=== PATIENT | male | born 1960 | race Caucasian/White ===

== ENCOUNTER 2021-02-06 15:54 | Emergency (ER) | payer SELFPAY ==
[~2021-02-06] VITALS: Ht 175.3 cm; Wt 94.8 kg
--- NOTE | 2021-02-06 16:15 | NUR ---
THE PATIENT PRESENTED TO ER FOR C/O NECK, L SHOULDER/FOUZIA PAIN WOORSENING X 1 WEEK. TINGLING SENSATION TO L HAND. 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 IN ROOM AIR AND DENIES SOB. RESPIRATION REGULAR AND UNLABORED. ATTACHED TO THE MONITOR. WILL CONTINUE TO MONITOR THE PATIENT.
[2021-02-06] MEDS ORDERED: HYDROCODONE/APAP 5/325MG TABLET PO ONE (16:30)
[2021-02-06] MEDS ORDERED: CYCLOBENZAPRINE 10 MG TABLET PO ONE (16:30)
[2021-02-06] MEDS ORDERED: DEXAMETHASONE SOLN 5 MG/5 ML UDC PO ONE (16:30)
[2021-02-06] MEDS ORDERED: CYCLOBENZAPRINE 10 MG TABLET ONE (16:33)
[2021-02-06] MEDS ORDERED: HYDROCODONE/APAP 5/325MG TABLET ONE (16:33)
[2021-02-06] MEDS ORDERED: DEXAMETHASONE SOLN 5 MG/5 ML UDC ONE (16:35)
--- NOTE | 2021-02-06 16:38 | NUR ---
THE PATIENT IS TAKEN TO CT
[2021-02-06] MEDS ORDERED: KETOROLAC TROMETHAMINE INJ 60 MG/2 ML VIAL IM ONE (17:00)
[2021-02-06] MEDS ORDERED: KETOROLAC TROMETHAMINE INJ 30 MG/ML VIAL ONE (17:16)
[2021-02-06] MEDS ORDERED: CYCL10TA9 PO (18:19)
[2021-02-06] MEDS ORDERED: NAPR-1192 PO (18:19)
[2021-02-06] MEDS ORDERED: METH4TAB3 PO (18:19)
--- NOTE | 2021-02-06 18:34 | NUR ---
Patient discharged to home in stable condition. Written and verbal after care instructions given. Patient verbalizes understanding of instruction.
[2021-02-06 18:35] VITALS: BP 142/87
== END 2021-02-06 18:35 | disposition home or self-care (01) ==
LOC: ER 15:54
DX: M54.12 Radiculopathy, cervical region (principal); J45.909 Unspecified asthma, uncomplicated; Z88.0 Allergy status to penicillin; Z79.899 Other long term (current) drug therapy
CPT/HCPCS: 36415; 72125; 73030; 84484; 93005; 96372; 99285; J1885; J8540